=== PATIENT | male | born 1950 | race Caucasian/White ===

== ENCOUNTER 2023-10-29 13:15 | Outpatient (RCR) | payer MEDICARE, BC, SELFPAY ==
--- NOTE | 2023-08-28 09:36 | URNOTE ---
Prior auth is not required for Azacitidine (J9025). Pt has medicare primary, services are based on medical necessity and follow medicare guidelines
--- NOTE | 2023-08-30 13:31 | PC.NURSE ---
Received a call from IBAN Dale at [facility] regarding Josh. They received his oral chemo from specialty pharmacy and wondered when to start giving him this drug. RN discussed case with JERMAN Sr who directed RN to call back with instructions to start September 04 AFTER pt returns home from [facility]. Left this detail on Suyapa's voicemail and invited calls back with follow-up questions. IBAN Dale - [phone]
[2023-09-05 08:21] LABS: Eosinophils Percent Auto 1.7 % (0.0-7.0); Hematocrit 35.6 % (37.0-53.0); Hemoglobin* 11.6 gm/dL (13.5-17.5); Mean Corpuscular HGB Conc 33 gm/dL (32-36); Mean Corpuscular Hemoglobin 36 pg (26-34); Mean Corpuscular Volume 110 fL (80-100); Monocytes Percent Auto 11.7 % (0.0-11.0); Neutrophils Percent Auto 21.6 % (42.0-72.0); Platelet Count* 172 K/uL (140-440); RDW Coefficient of Variation % 19.4 % (11.5-15.5); Red Blood Count 3.24 m/uL (4.30-5.90)
[2023-09-05 08:35] LABS: Albumin* 3.8 g/dL (3.3-5.0); Chloride* 105 mmol/L (96-114); Potassium* 4.2 mmol/L (3.6-5.1); Sodium* 137 mmol/L (135-149)
[2023-09-05 08:37] LABS: Bilirubin Total* 0.6 mg/dL (0.1-1.5); Creatinine* 0.6 mg/dL (0.5-1.5); Est. Creatinine Clearance* 67.98; Estimated Glomerular Filt Rate 101 ml/min
[2023-09-05 08:38] LABS: Alanine Aminotransferase* 12 U/L (4-50); Alkaline Phosphatase* 61 U/L (40-150); Anion Gap 4 mEq/L (7-15); Aspartate Amino Transferase* 15 U/L (12-35); Blood Urea Nitrogen* 11 mg/dL (7-30); Calcium* 9.3 mg/dL (8.4-10.6); Carbon Dioxide* 28 mmol/L (20-32); Glucose* 92 mg/dL (60-115); Total Protein* 6.2 g/dL (6.0-8.3)
[2023-09-05 08:43] LABS: Slide Review Reflex Yes
[2023-09-05] MEDS: SODIUM CHLORIDE 0.9 % (FLUSH) 10 ML SYRINGE IVF (09:43)
[2023-09-05] MEDS: HEPARIN 500 UNIT/5 ML SYRINGE IVF (09:43)
[2023-09-05 10:27] LABS: Slide Review Acceptable Review (Acceptable)
--- NOTE | 2023-09-05 13:27 | ONC.NURNOTE ---
Communication follow up for Josh Geiger- [phone] Seun Adrienne Jeffersonn (sister in law) requests that all medical appts and treatment communication take place with the assisted living residence-
--- NOTE | 2023-09-05 13:32 | ONC.NURNOTE ---
Patient was seen today in the [facility]- all LEE communication forms reviewed and signed by Romeo consent reviewed and signed patient asked that he not receive any additional written information- he is visually impaired with cataracts and unable to have correction surg while he is on treatment this will be his 4th cycle of treatment- he has denied any questions about his treatment-
[2023-09-12] MEDS: SODIUM CHLORIDE 0.9 % (FLUSH) 10 ML SYRINGE IVF ×3 (09:06→11:00)
[2023-09-12 09:25] LABS: Albumin* 3.8 g/dL (3.3-5.0); Basophils Percent Auto 0.8 % (0.0-3.0); Chloride* 105 mmol/L (96-114); Eosinophils Percent Auto 0.5 % (0.0-7.0); Hematocrit 37.3 % (37.0-53.0); Hemoglobin* 12.1 gm/dL (13.5-17.5); Immature Granulocytes Pct Auto 1.3 %; Lymphocytes Percent Auto 29.5 % (20-44); Mean Corpuscular HGB Conc 32 gm/dL (32-36); Mean Corpuscular Hemoglobin 36 pg (26-34); Mean Corpuscular Volume 110 fL (80-100); Monocytes Percent Auto 10.1 % (0.0-11.0); Neutrophils Percent Auto 57.8 % (42.0-72.0); Platelet Count* 218 K/uL (140-440); RDW Coefficient of Variation % 18.5 % (11.5-15.5); Sodium* 137 mmol/L (135-149); White Blood Count* 3.96 K/uL (4.50-11.00)
[2023-09-12 09:27] LABS: Slide Review Reflex No
[2023-09-12 09:28] LABS: Alkaline Phosphatase* 92 U/L (40-150); Anion Gap 6 mEq/L (7-15); Aspartate Amino Transferase* 19 U/L (12-35); Bilirubin Total* 0.4 mg/dL (0.1-1.5); Blood Urea Nitrogen* 12 mg/dL (7-30); Carbon Dioxide* 26 mmol/L (20-32); Creatinine* 0.6 mg/dL (0.5-1.5); Est. Creatinine Clearance* 67.98; Estimated Glomerular Filt Rate 101 ml/min; Total Protein* 6.2 g/dL (6.0-8.3)
[2023-09-12 09:29] LABS: Alanine Aminotransferase* 12 U/L (4-50); Calcium* 9.2 mg/dL (8.4-10.6); Glucose* 90 mg/dL (60-115)
[2023-09-12 09:41] VITALS: BP 134/66; PULSE 73; RESP 16; TEMP 36.4; O2SAT 98
[2023-09-12] MEDS: CETIRIZINE HCL 10 MG TABLET PO (10:00)
[2023-09-12] MEDS: FAMOTIDINE 10 MG/ML inj 20 MG IVP (10:00)
[2023-09-12] MEDS: ONDANSETRON ODT 4 MG TAB 8 MG PO (10:00)
[2023-09-12] MEDS: HEPARIN 500 UNIT/5 ML SYRINGE IVF (11:00)
[2023-09-13 08:31] VITALS: BP 106/55; PULSE 92; RESP 16; TEMP 36.5; O2SAT 92
[2023-09-13] MEDS: CETIRIZINE HCL 10 MG TABLET PO (08:54)
[2023-09-13] MEDS: ONDANSETRON ODT 4 MG TAB 8 MG PO (08:55)
[2023-09-13] MEDS: SODIUM CHLORIDE 0.9 % (FLUSH) 10 ML SYRINGE IVF ×2 (08:55→10:00)
[2023-09-13] MEDS: 0.9 % SODIUM CHLORIDE 250 ml IV (08:56)
[2023-09-13] MEDS: FAMOTIDINE 10 MG/ML inj 20 MG IVP (08:56)
[2023-09-13] MEDS: HEPARIN 500 UNIT/5 ML SYRINGE IVF (10:00)
[2023-09-16] MEDS: CETIRIZINE HCL 10 MG TABLET PO (09:43)
[2023-09-16] MEDS: ONDANSETRON ODT 4 MG TAB 8 MG PO (09:43)
[2023-09-16] MEDS: FAMOTIDINE 10 MG/ML inj 20 MG IVP (09:45)
[2023-09-16] MEDS: SODIUM CHLORIDE 0.9 % (FLUSH) 10 ML SYRINGE IVF ×2 (09:47→11:05)
[2023-09-16] MEDS: 0.9 % SODIUM CHLORIDE 250 ml IV (09:47)
[2023-09-16 09:56] VITALS: BP 120/71; PULSE 77; RESP 16; TEMP 36.3; O2SAT 98
[2023-09-16] MEDS: HEPARIN 500 UNIT/5 ML SYRINGE IVF (11:05)
[2023-09-17 09:03] VITALS: BP 120/71; PULSE 85; RESP 16; TEMP 36.6; O2SAT 98
[2023-09-17] MEDS: SODIUM CHLORIDE 0.9 % (FLUSH) 10 ML SYRINGE IVF ×2 (09:10→10:40)
[2023-09-17] MEDS: 0.9 % SODIUM CHLORIDE 250 ml IV (09:10)
[2023-09-17] MEDS: CETIRIZINE HCL 10 MG TABLET PO (09:13)
[2023-09-17] MEDS: ONDANSETRON ODT 4 MG TAB 8 MG PO (09:14)
[2023-09-17] MEDS: FAMOTIDINE 10 MG/ML inj 20 MG IVP (09:14)
[2023-09-17] MEDS: HEPARIN 500 UNIT/5 ML SYRINGE IVF (10:40)
[2023-09-18 08:31] VITALS: BP 122/69; PULSE 84; RESP 16; TEMP 36.5; O2SAT 98
[2023-09-18] MEDS: ONDANSETRON ODT 4 MG TAB 8 MG PO (08:53)
[2023-09-18] MEDS: CETIRIZINE HCL 10 MG TABLET PO (08:53)
[2023-09-18] MEDS: 0.9 % SODIUM CHLORIDE 250 ml IV (08:54)
[2023-09-18] MEDS: SODIUM CHLORIDE 0.9 % (FLUSH) 10 ML SYRINGE IVF (08:54)
[2023-09-18] MEDS: FAMOTIDINE 10 MG/ML inj 20 MG IVP (08:54)
[2023-09-19 09:09] VITALS: BP 147/65; PULSE 77; RESP 16; TEMP 36; O2SAT 100
[2023-09-19] MEDS: CETIRIZINE HCL 10 MG TABLET PO (09:20)
[2023-09-19] MEDS: FAMOTIDINE 10 MG/ML inj 20 MG IVP (09:20)
[2023-09-19] MEDS: ONDANSETRON ODT 4 MG TAB 8 MG PO (09:21)
[2023-09-19] MEDS: SODIUM CHLORIDE 0.9 % (FLUSH) 10 ML SYRINGE IVF ×2 (09:22→10:30)
[2023-09-19] MEDS: 0.9 % SODIUM CHLORIDE 250 ml IV (09:22)
[2023-09-19] MEDS: HEPARIN 500 UNIT/5 ML SYRINGE IVF (10:30)
[2023-09-20 08:30] VITALS: BP 133/70; PULSE 86; RESP 16; TEMP 37.2; O2SAT 97
[2023-09-20] MEDS: FAMOTIDINE 10 MG/ML inj 20 MG IVP (08:38)
[2023-09-20] MEDS: ONDANSETRON ODT 4 MG TAB 8 MG PO (08:38)
[2023-09-20] MEDS: CETIRIZINE HCL 10 MG TABLET PO (08:38)
--- NOTE | 2023-09-23 10:04 | ONC.NURNOTE ---
Addendum entered by Ashley Montenegro RN 09/23/23 11:22: Per Dr. Duncan, patient would add the dose to the end of the treatment. Left message for facility. Original Note: Received phone call from facility that patient is staying at. He forgot to take his venetoclax last night, so he took his dose this morning (12 hours off schedule). Patient wondering if should take usual dose tonight or switch to morning dosing. If switching to morning dosing, should patient take all ten doses or skip a dose? Nursing to address with provider during break today.
--- NOTE | 2023-10-10 09:59 | ONC.NURNOTE ---
Follow up call to Josh: 1. ANC .93 on Saturday and patient was instructed to restart his Levofloxacin due when ANC<1.0- patient states understanding 2. No noted fevers- but Josh can not find his thermemeter- will connect with IBAN Lucero- this clinic will provide a thermometer when patient comes in on next week 3. Denies any N/V or periorbital edema- so has not taken the Zyrtec at home 4. reports a rash X 2 days on arms only- cream applied and resolved after 2nd day 5. one concern was 8-9 days of increase stool patient reports 2-3 diarrhea episodes per day- which he managed by adjusting his diet- his stool pattern has been back to his normal of one stool every am after a strong' cup of coffee Josh states he left a message on our answering machine about his diarrhea but did not hear back from the office- 6. Josh states that he is pleased with how the treatment went and he feels well- he makes his own food and has a good appetite 7. Has not heard from [facility] about delivery of venetoclax 8. Lab due Saturday- Josh wants to know if he will need more labs on - this office will call Josh with lab results on Saturday or Saturday next week
--- NOTE | 2023-10-14 14:54 | ONC.NURNOTE ---
Addendum entered by Maricarmen Live RN 10/14/23 16:44: Received call back from Pat, pt's sister-in law. She will check in with pt to make sure he is taking the Levofloxacin and that he is asymptomatic with bleeding and signs of infection. After School Program Director will notify Pat tomorrow with ANC result. Original Note: Left message for pt to call [facility] nursing back- labs done at [place], reviewed by Nelsy Benson APRN. Hgb 11.3, plts-38,000, total WBC- 0.6, ANC -needs to be sent to pathology-should have results on 10/15/23. Need to make sure pt taking Levofloxacin, any bleeding?, any s/s of infection?
[2023-10-17] MEDS: HEPARIN 500 UNIT/5 ML SYRINGE IVF (08:30)
[2023-10-17] MEDS: SODIUM CHLORIDE 0.9 % (FLUSH) 10 ML SYRINGE IVF (08:30)
[2023-10-17 08:39] LABS: Eosinophils Percent Auto 2.8 % (0.0-7.0); Hematocrit 30.7 % (37.0-53.0); Hemoglobin* 10.2 gm/dL (13.5-17.5); Mean Corpuscular HGB Conc 33 gm/dL (32-36); Mean Corpuscular Hemoglobin 35 pg (26-34); Mean Corpuscular Volume 106 fL (80-100); Monocytes Percent Auto 19.4 % (0.0-11.0); Neutrophils Percent Auto 2.8 % (42.0-72.0); Red Blood Count 2.89 m/uL (4.30-5.90)
[2023-10-17 09:13] LABS: White Blood Count* 0.36 K/uL (4.50-11.00)
[2023-10-17 09:14] LABS: Platelet Count* 22 K/uL (140-440); Slide Review Reflex Yes
[2023-10-17 10:00] LABS: Slide Review Acceptable Review (Acceptable)
--- NOTE | 2023-10-17 10:28 | ONC.NURNOTE ---
Cycle 6 of pembrolizumab delayed one week d/t cardiac procedure scheduled for 11/03. Recommendation per Dr. Duncan, patient agreeable.
[2023-10-21 15:00] VITALS: TEMP 36.9
--- NOTE | 2023-10-21 15:36 | ONC.NURNOTE ---
Addendum entered by Ashley Montenegro RN 10/21/23 16:39: Discussed the below with [facility] staff, they were questioning about getting a prescription for ondansetron. This is noted in his medication list, so patient was instructed to bring all medications with him on Saturday to see what he has. Patient will come to [facility] for labs on Saturday, we are hoping to continue to have labs here vs. [place] due to the delay in results. This is to be discussed with patient each visit. Original Note: Patient's labs reviewed with Dr. Duncan via phone and with [employer]. 1. Platelets to be transfused tonight, these are ordered as pathogen reduced and will arrive at 1700. 2. Recheck CBC in [place] on Saturday to determine need for more blood products. 3. All chemotherapy still on hold d/t WBC. Patient questions about quality of life with needing more frequent blood draws and transfusions. He was told that when he feels like it is getting be too much he needs to let staffing know so that the appropriate conversation can be had with his provider. Patient states that there was a medication that he was supposed to ask about per Jazmine, the RN at the [facility]. He does not remember which one. [employer] Manager LM with above details of plan and asked their office to call [facility] to discuss which medication that might be. Patient requested that above information be relayed to sister in law, this was done as well.
[2023-10-21 17:57] VITALS: BP 113/58; PULSE 78; RESP 18; TEMP 36.9; O2SAT 99
[2023-10-21 18:15] VITALS: BP 138/64; PULSE 75; RESP 18; TEMP 36.9; O2SAT 99
[2023-10-21 18:40] VITALS: BP 119/70; PULSE 69; RESP 18; TEMP 37.1; O2SAT 99
--- NOTE | 2023-10-21 19:36 | PC.NURSE ---
pt came in on isolation precautions. port was already accessed. NS was started and port was flushed. Platelets given with no problems. pt has been here since noon. after 15 minutes after transfusion pt said he had to leave cause his ride was here. port was flushed with heparin. pt wanted to keep port accessed./ pt was walked out to front endurance.
[2023-10-21] MEDS: HEPARIN 500 UNIT/5 ML SYRINGE IVF (19:41)
[2023-10-23 08:01] VITALS: BP 114/72; PULSE 82; TEMP 37.1; O2SAT 97
[2023-10-23 08:16] LABS: Hematocrit 29.7 % (37.0-53.0); Hemoglobin* 9.8 gm/dL (13.5-17.5); Lymphocytes Percent Auto 61.7 % (20-44); Mean Corpuscular HGB Conc 33 gm/dL (32-36); Mean Corpuscular Hemoglobin 35 pg (26-34); Mean Corpuscular Volume 105 fL (80-100); Monocytes Percent Auto 25.5 % (0.0-11.0); Neutrophils Percent Auto 12.8 % (42.0-72.0); RDW Coefficient of Variation % 14.9 % (11.5-15.5); Red Blood Count 2.84 m/uL (4.30-5.90)
[2023-10-23 08:28] LABS: Platelet Count* 10 K/uL (140-440); Slide Review Reflex Yes; White Blood Count* 0.47 K/uL (4.50-11.00)
[2023-10-23 08:35] LABS: Slide Review Acceptable Review (Acceptable)
[2023-10-23] MEDS: 0.9 % SODIUM CHLORIDE 1000 ml 1,000 ML IV (09:02)
[2023-10-23] MEDS: ONDANSETRON 2 MG/ML inj 8 MG IVP (09:02)
--- NOTE | 2023-10-23 09:57 | ONC.NURNOTE ---
Pt here for CBC recheck. Platelets 10,000, WBC 0.47, ANC 0.06. Pt arrived nauseated with complaints of diarrhea as well. Pt also c/o poor liquid intake. Discussed with Nelsy Quintanilla APRN. Order received for platelet transfusion on 10/24/23. Also received orders for 1 liter NS and 8 mg of IV Zofran. Will send stool for cdiff if able today, or will send home with supplies to bring back tomorrow. Pt instructed to pick up attendant a probiotic to take daily and to hold any aspirin. The above information was written out for pt and will update pt's sister in law as requested by pt. Pt also given written instructions on how to manage diarrhea at home. Pt verbalized understanding of plan of care.
[2023-10-23] MEDS: HEPARIN 500 UNIT/5 ML SYRINGE IVF (10:28)
[2023-10-23] MEDS: SODIUM CHLORIDE 0.9 % (FLUSH) 10 ML SYRINGE IVF (10:29)
[2023-10-24 09:53] VITALS: BP 112/64; PULSE 86; RESP 16; TEMP 36.5; O2SAT 99
[2023-10-24 10:12] VITALS: BP 107/62; PULSE 70; RESP 16; TEMP 36.6; O2SAT 98
[2023-10-24 10:57] VITALS: BP 130/74; PULSE 65; RESP 16; TEMP 37.1; O2SAT 97
[2023-10-24] MEDS: PROCHLORPERAZINE 10 MG TABLET PO (11:09)
[2023-10-24 11:39] VITALS: BP 129/70; PULSE 64; RESP 16; TEMP 36.7; O2SAT 99
[2023-10-24 12:25] VITALS: BP 110/56; PULSE 82; RESP 16; TEMP 37; O2SAT 99
[2023-10-27 11:18] LABS: C.Difficile Negative (Negative); CDIFFEPI 027 PRESUMPTIVE NEGATIVE (Negative)
[2023-10-28 13:30] VITALS: BP 107/68; PULSE 89; RESP 16; TEMP 36.2; O2SAT 93
[2023-10-28] MEDS: SODIUM CHLORIDE 0.9 % (FLUSH) 10 ML SYRINGE IVF ×2 (14:25→16:15)
[2023-10-28] MEDS: 0.9 % SODIUM CHLORIDE 1000 ml 1,000 ML IV (14:30)
[2023-10-28] MEDS: ONDANSETRON 2 MG/ML inj 8 MG IVP (15:25)
[2023-10-28 15:26] LABS: Albumin* 3.2 g/dL (3.3-5.0)
[2023-10-28 15:27] LABS: Chloride* 103 mmol/L (96-114); Potassium* 3.6 mmol/L (3.6-5.1); Sodium* 135 mmol/L (135-149)
[2023-10-28 15:29] LABS: Anion Gap 5 mEq/L (7-15); Aspartate Amino Transferase* 25 U/L (12-35); Bilirubin Total* 0.8 mg/dL (0.1-1.5); Carbon Dioxide* 27 mmol/L (20-32); Creatinine* 0.7 mg/dL (0.5-1.5); Est. Creatinine Clearance* 67.98; Estimated Glomerular Filt Rate 96 ml/min
[2023-10-28] MEDS: dexAMETHasone 10 MG/ML inj 4 MG IVP (15:29)
[2023-10-28 15:30] LABS: Alanine Aminotransferase* 10 U/L (4-50); Alkaline Phosphatase* 46 U/L (40-150); Blood Urea Nitrogen* 10 mg/dL (7-30); Calcium* 8.6 mg/dL (8.4-10.6); Glucose* 96 mg/dL (60-115); Total Protein* 5.6 g/dL (6.0-8.3)
[2023-10-28 15:33] LABS: Basophils Percent Auto 1.1 % (0.0-3.0); Hematocrit 29.8 % (37.0-53.0); Hemoglobin* 9.8 gm/dL (13.5-17.5); Mean Corpuscular HGB Conc 33 gm/dL (32-36); Mean Corpuscular Hemoglobin 34 pg (26-34); Mean Corpuscular Volume 104 fL (80-100); Monocytes Percent Auto 39.8 % (0.0-11.0); Neutrophils Percent Auto 9.1 % (42.0-72.0); RDW Coefficient of Variation % 14.7 % (11.5-15.5); Red Blood Count 2.86 m/uL (4.30-5.90)
[2023-10-28 15:34] LABS: Slide Review Reflex Yes
[2023-10-28 15:35] LABS: Platelet Count* 4 K/uL (140-440)
[2023-10-28 15:36] LABS: White Blood Count* 0.88 K/uL (4.50-11.00)
[2023-10-28] MEDS: HEPARIN 500 UNIT/5 ML SYRINGE IVF (16:15)
[2023-10-28 16:46] LABS: Slide Review Acceptable Review (Acceptable)
[2023-10-29 13:10] VITALS: BP 143/83; PULSE 71; RESP 15; TEMP 37.1; O2SAT 97
[2023-10-29 13:26] VITALS: BP 143/83; PULSE 70; RESP 15; TEMP 37.1; O2SAT 97
[2023-10-29 13:43] VITALS: BP 137/82; PULSE 71; RESP 14; TEMP 37; O2SAT 96
== END 2023-11-05 23:59 | disposition home or self-care (01) ==
LOC: CCIC 13:15
PROVIDERS: Clinical Nurse Specialist; Visit Provider Internal Medicine Hematology & Oncology
DX: C86.4 Blastic NK-cell lymphoma (principal)
CPT/HCPCS: 36415; 36430; 36591; 80053; 85025; 86900; 86901; 87493; 96360; 96376; 96413; 99202; 99204; 99213; 99215; G0463; A9270; J1100; J1642; J2405; J7030; J7050; J9025; P9073; S0028